=== PATIENT | female | born 1940 | race Caucasian/White ===

== ENCOUNTER 2022-11-27 06:36 | Day surgery (SDC) | payer MEDICARE ==
[2022-11-24 16:07] LABS: BASOPHILS # (AUTO) 0.1 X10'3 (0-0.2); BASOPHILS % (AUTO) 0.7 % (0-1); EOSINOPHILS # (AUTO) 0.2 X10'3 (0-0.9); EOSINOPHILS % (AUTO) 2.1 % (0-6); HEMATOCRIT 38.2 % (35.0-45.0); HEMOGLOBIN 12.8 g/dl (12.0-16.0); LYMPHOCYTES # (AUTO) 3.3 X10'3 (1.1-4.8); LYMPHOCYTES % (AUTO) 34.7 % (21-51); MEAN CORPUSCULAR HEMOGLOBIN 29.8 PG (27.0-31.0); MEAN CORPUSCULAR HGB CONC 33.5 g/dL (33.0-36.5); MEAN CORPUSCULAR VOLUME 89.1 FL (78-98); MEAN PLATELET VOLUME 7.2 FL (7.4-10.4); MONOCYTES # (AUTO) 0.8 X10'3 (0-0.9); MONOCYTES % (AUTO) 8.6 % (2-12); NEUTROPHILS # (AUTO) 5.1 X10'3 (1.8-7.7); NEUTROPHILS % (AUTO) 53.9 % (42-75); PLATELET COUNT 360 X10'3 (140-440); RED BLOOD COUNT 4.29 X10'6 (4.20-5.60); RED CELL DISTRIBUTION WIDTH 15.9 % (11.5-14.5); WHITE BLOOD COUNT 9.4 X10'3 (4.5-11.0)
[2022-11-24 16:23] LABS: ALANINE AMINOTRANSFERASE 26 U/L (12-78); ALBUMIN 3.5 G/DL (3.4-5.0); ALBUMIN/GLOBULIN RATIO 0.9 (1.1-1.5); ALKALINE PHOSPHATASE 83 IU/L (46-116); ANION GAP 10 (8-16); ASPARTATE AMINO TRANSFERASE 23 U/L (10-37); BILIRUBIN,TOTAL 0.3 MG/DL (0.1-1.0); BLOOD UREA NITROGEN 24 MG/DL (7-18); BUN/CREATININE RATIO 20.5 (10.0-20.0); CALCIUM 9.6 MG/DL (8.5-10.1); CHLORIDE 104 MMOL/L (99-107); CREATININE 1.17 MG/DL (0.40-0.90); GLUCOSE 97 MG/DL (70-104); SODIUM 142 MMOL/L (135-145); TOTAL CARBON DIOXIDE 28.2 MMOL/L (24-32); TOTAL PROTEIN 7.3 G/DL (6.4-8.2); eGFR 45 ML/MIN
[~2022-11-27] VITALS: Ht 160 cm; Wt 67.6 kg
[2022-11-27] VITALS (8 sets, daily range): BP systolic 100–137; BP diastolic 45–82; PULSE 45–62; RESP 8–16; TEMP 98.7; O2SAT 98–100
[~2022-11-27 06:36] MED LIST: ATEN25TA2 PO; ATOR40TA PO; BENA20TA83 PO; CALC200T PO; DOCUMENT DATE & TIME OF BETA-BLOCKER PO ONE; MV-M1CAP15 PO; TRAZ-251 PO; UBID200C18 PO; cefazolin 2gm/D5W 100mL 100 ML IV ONE; famotidine 20mg tablet PO ONE; ringers solution, lacted 1,000 ML IV SCH
[2022-11-27] MEDS ORDERED: BUPIVAcaine/PF 2.5 mg/ml (0.25%) 30ml vial ONE (06:42)
[2022-11-27] MEDS ORDERED: ondansetron/PF 4mg/2ml inj IV PRN (07:55)
[2022-11-27] MEDS ORDERED: hydrALAZINE 20mg/ml inj. IV PRN (07:55)
[2022-11-27] MEDS ORDERED: morphine 4 MG/ML inj SYRINge IV PRN (07:55)
[2022-11-27] MEDS ORDERED: ringers solution, lacted 1,000 ML IV SCH (07:55)
[2022-11-27] MEDS ORDERED: morphine 2 MG/ML inj. syringe IV PRN (07:55)
[2022-11-27] MEDS ORDERED: midazolam 1 mg/ML 2ml injection ONE (08:47)
[2022-11-27] MEDS ORDERED: fentaNYL/PF 50MCG/1 ML 2ML syringe ONE (08:47)
[2022-11-27] MEDS ORDERED: BUPIVAcaine/PF 2.5 mg/ml (0.25%) 30ml vial IJ ONE (09:00)
[2022-11-27] MEDS ORDERED: LIDOcaine 0.5% (5mg/ml) 50ml vial ONE (09:03)
--- NOTE | 2022-11-27 09:26 | NUR ---
Received from OR via , accompanied by Anesthesiologist JES and report given by Anesthesiologist. YONIS CAMARENA TO VERBAL STIMULI, MONITOR S TADEO; IV TO L WRIST 20 GUAGE W/ LR AT 100 ML/HR; R WRIST DRESSING CDI; Addendum: 11/27/22 at 0989 by Elinor Chavsi RN Amended: Links added.
--- NOTE | 2022-11-27 10:25 | NUR ---
TC TO DR. ANDRE TO REPORT THAT PT'S HR DROPS TO LOW 40'S WHEN SHE IS DOZING, BUT INCREASES TO HI 40'S/LOW 50'S WHEN ROUSED. B/P WAS LOW 100/ ONCE, BUT GENERALLY WNL FOR HER. NO NEW ORDERS. Addendum: 11/27/22 at 1028 by Elinor Chavis RN Amended: Links added.
--- NOTE | 2022-11-27 11:06 | NUR ---
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 SHE IS ALERT, ABLE TO DRESS SELF. NO COMPLAINTS OF PAIN OR LIGHTHEADEDNESS. VSS W/ BRADYCARDIC HR. AWARE. IV CORAL'Lani. DRESSING INTACT TO R HAND W/ ICE. Addendum: 11/27/22 at 1135 by Elinor Chavis RN Amended: Links added.
== END 2022-11-27 11:06 | disposition home or self-care (01) ==
LOC: PAS 06:36
PROVIDERS: ATTEND Orthopaedic Surgery Hand Surgery
DX: G56.01 Carpal tunnel syndrome, right upper limb (principal); I10 Essential (primary) hypertension; Z79.899 Other long term (current) drug therapy; Z79.82 Long term (current) use of aspirin; Z98.890 Other specified postprocedural states; Z98.41 Cataract extraction status, right eye; Z98.42 Cataract extraction status, left eye; Z85.3 Personal history of malignant neoplasm of breast; Z82.3 Family history of stroke
CPT/HCPCS: 36415; 64721; 80053; 82948; 85025; 93005; J0690; J2250; J3010; J3490; J7030; J7120; Z7506; Z7512; A4215; A6449